=== PATIENT | female | born 1990 | race Two or more races ===

== ENCOUNTER 2023-11-16 06:05 | Emergency (ER) | payer BC ==
[~2023-11-16] VITALS: Ht 170.2 cm; Wt 77.1 kg
[2023-11-16] MEDS ORDERED: PEPCID AC10 MG (06:18)
[2023-11-16] MEDS ORDERED: PERCOCET 5-3251 EACH (06:19)
[2023-11-16 10:40] LABS: HEMATOCRIT 39.9 % (36.0-45.00); MEAN CELL VOLUME 90.1 fL (80.00-100.00); MEAN CORPUSCULAR HEMOGLOBIN 31.5 pg (27.00-32.0); PLATELET COUNT 243 K/uL (150-450); RED BLOOD COUNT 4.43 M/uL (4.00-6.00); RED CELL DISTRIBUTION WIDTH 12.9 % (11.5-14.5)
== END 2023-11-16 11:07 | disposition home or self-care (01) ==
LOC: ER 06:06
PROVIDERS: General Practice
DX: L50.9 Urticaria, unspecified (principal); E03.9 Hypothyroidism, unspecified; M51.36 Other intervertebral disc degeneration, lumbar region